=== PATIENT | male | born 1955 | race African-American/Black ===

== ENCOUNTER 2020-05-27 19:26 | Observation (INO) | payer MEDICARE ==
[~2020-05-27] VITALS: Ht 180.3 cm; Wt 65.9 kg
--- NOTE | 2020-05-27 19:28 | NUR ---
BY EMS TO ROOM
[2020-05-27 20:20] LABS: HEMATOCRIT 40.7 % (39.0-50.0); HEMOGLOBIN 13.5 g/dl (14.0-18.0); IMMATURE GRANULOCYTES 0.2 % (0.0-5.0); MEAN CELL VOLUME 88.5 fL CALC (80.0-100.0); MEAN CORPUSCULAR HGB 29.3 pG CALC (26.0-32.0); MEAN CORPUSCULAR HGB CONC 33.2 g/dL CAL (32.0-36.0); NEUT# 3.44 thou/uL (1.82-7.42); RED BLOOD COUNT 4.6 mill/uL (4.70-6.10); RED CELL DISTRI WIDTH 15.4 % (11.5-15.5)
[2020-05-27 20:41] LABS: INTERNATIONAL NORMALIZED RATIO 1.6 RATIO (0.7-1.3); PROTHROMBIN TIME 15.6 SECONDS (9.0-12.5)
[2020-05-27 20:42] LABS: ALBUMIN 4.3 g/dL (3.2-5.0); BILIRUBIN, TOTAL 2.1 mg/dL (0.0-1.4); CREATININE 1.6 mg/dL (0.7-1.3); POTASSIUM 3.8 mmol/l (3.5-5.1); TOTAL PROTEIN 7.2 g/dL (6.3-8.2)
--- NOTE | 2020-05-27 22:39 | NUR ---
PT GIVEN SNACK OF SANDWICH AND PUDDING. BP IN THE 80'S. PT STATES HE LIVES THERE. DISCUSSED WITH DR. OKEEFE AND HE DISCUSSED WITH ADMITTING PHYSICIAN. OK WITH THIS BP.
--- NOTE | 2020-05-27 22:51 | NUR ---
PT PREPARED FOR FLOOR. SR. C/O MUSCULAR PAIN IN RIGHT SHOULDER. REQUESTING TYLENOL FOR IT. DR. OKEEFE NOTIFIED. ATTEMPTED TO CALL REPORT. NURSE WILL CALL BACK.
--- NOTE | 2020-05-27 22:57 | NUR ---
REPORT TO MELLISA/NURSE/MED-SURG.
--- NOTE | 2020-05-27 23:14 | NUR ---
PT ARRIVED TO FLOOR VIA WHEELCHAIR, AMBULATED WITH STEADY GAIT. ALERT AND ORIENTED X3. NO APPARENT DISTRESS NOTED. RESPIRATIONS EVEN AND UNLABORED. LUNG SOUNDS CLEAR. LEPIDOPTERIST IN PLACE. SKIN INTACT. TRACE EDEMA NOTE TO BLE. PT C/O RIGHT SHOULDER PAIN, IMPROVED SINCE APAP IN ER. PT HAS CPAP MACHINE AT HOME FOR SLEEP APNEA, HAS NO ONE TO BRING IT IN TONIGHT. PT STATES OF 35 YEARS A YEAR AND HALF AGO AND STILL STRUGGLING WITH IT, TRYS TO KEEP HIMSELF OCCUPIED BY TRAVELING. NO MED REC COMPLETED PT LEFT MED LIST AT HOME AND DOES NOT RECALL ALL THE NAMES AND DOSES. PT ORIENTED TO ROOM AND CALL LIGHT SYSTEM. DISCUSSED POC AND SAFETY PRECAUTIONS. PT VERBALIZED UNDERSTANDING. DINNER PROVIDED AT THIS TIME. CALL LIGHT WITHIN REACH. WILL CONTINUE TO MONITOR.
--- NOTE | 2020-05-27 23:20 | NUR ---
TO FLOOR VIA W/C WITH POCKET MONITOR.
--- NOTE | 2020-05-27 23:51 | NUR ---
PT SET UP FOR SHOWER AT THIS TIME. IV SECURED WITH PLASTIC WRAP. INSTRUCTED TO CALL WHEN FINISHED FOR ASSISTANCE. WILL CONTINUE TO MONITOR.
[2020-05-27 23:52] VITALS: BP 82/64
--- NOTE | 2020-05-28 00:23 | NUR ---
PT OUT OF SHOWER AND BACK INTO BED. PT STATES HE IS FEELING MUCH BETTER. DENIES ANY CURRENT WANTS OR NEEDS. NO APPARENT DISTRESS NOTED. WET FINISHER REAPPLIED. CALL LIGHT WITHIN REACH. WILL CONTINUE TO MONITOR.
--- NOTE | 2020-05-28 02:51 | NUR ---
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 PT SLEEPING IN BED DURING EVENT. DENIES ANY SYMPTOMS. ER PHYSICIAN NOTIFIED. CALL LIGHT WITHIN REACH. WILL CONTINUE TO MONITOR.
[2020-05-28 04:49] VITALS: BP 86/65
[2020-05-28 07:36] VITALS: BP 93/70
--- NOTE | 2020-05-28 08:35 | NUR ---
PT SEEN AT REST IN THE BED, NO COMPLAINTS OR EVIDENCE OF DISTRESS. LUNGS CLEAR, RA. BM YESTERDAY. PT SEEN BY DR BARNEY, PLAN OF CARE DISCUSSED.
[2020-05-28 10:57] LABS: CHOLESTEROL HDL RATIO 2.6 (<4.4 (CALC)); MAGNESIUM 2.1 mg/dL (1.6-2.3)
[2020-05-28 11:00] VITALS: BP 88/52
[2020-05-28] MEDS ORDERED: TRAMADOL HCL50 MG PO (11:22)
[2020-05-28] MEDS ORDERED: BISOPROL FUM5 MG PO (11:29)
[2020-05-28] MEDS ORDERED: BUMETANIDE1 MG PO (11:33)
[2020-05-28] MEDS ORDERED: CLONAZEP ODT0.5 MG PO (11:34)
--- NOTE | 2020-05-28 11:34 | NUR ---
IV site discontinued, cath intact. No edema , no redness, voices no discomfort.
[2020-05-28] MEDS ORDERED: DIGOXIN0.125 MG PO (11:36)
[2020-05-28] MEDS ORDERED: ELIQUIS5 MG PO (11:37)
[2020-05-28] MEDS ORDERED: ISOSORB DIN30 MG PO (11:39)
[2020-05-28] MEDS ORDERED: SIMVASTATIN40 MG PO (11:48)
[2020-05-28] MEDS ORDERED: ENTRESTO 24-261 TAB PO (11:52)
--- NOTE | 2020-05-28 11:54 | NUR ---
[facility] AT BEDSIDE. PHARMACY WORKING ON DC MED REC. WORKERS COMPENSATION CLAIMS ADJUSTER TO REVIEW.
[2020-05-28] MEDS ORDERED: GINKGO BILOB60 MG PO (11:57)
[2020-05-28] MEDS ORDERED: PROBIOTI3 PO (11:59)
[2020-05-28] MEDS ORDERED: FOLIC ACI1 PO (12:03)
[2020-05-28] MEDS ORDERED: VITAMIN7 PO (12:05)
--- NOTE | 2020-05-28 12:15 | NUR ---
Discharge instructions given. Patient verbalizes understanding of same. Discharged in stable condition via Wheelchair to Home with family. All belongings sent with pt.
== END 2020-05-28 12:15 | disposition home or self-care (01) ==
LOC: ED 19:26 → ED-I 22:00 → ED 22:19 → MS2 22:20
PROVIDERS: Family Medicine; Nurse Practitioner; ADMIT Internal Medicine; ATTEND Internal Medicine
DX: I47.2 Ventricular tachycardia (principal); I13.0 Hypertensive heart and chronic kidney disease with heart failure and stage 1 through stage 4 chronic kidney disease, or unspecified chronic kidney disease; E11.22 Type 2 diabetes mellitus with diabetic chronic kidney disease; N18.9 Chronic kidney disease, unspecified; I50.9 Heart failure, unspecified; I42.9 Cardiomyopathy, unspecified; E78.5 Hyperlipidemia, unspecified; G47.30 Sleep apnea, unspecified; F17.290 Nicotine dependence, other tobacco product, uncomplicated; Z95.810 Presence of automatic (implantable) cardiac defibrillator; Z79.899 Other long term (current) drug therapy; Z20.828 Contact with and (suspected) exposure to other viral communicable diseases
CPT/HCPCS: G0378